=== PATIENT | male | born 1975 | race Two or more races ===

== ENCOUNTER 2020-10-03 19:08 | Emergency (ER) | payer MEDICAID, OTHER ==
[~2020-10-03] VITALS: Ht 170.2 cm; Wt 67.1 kg
[2020-10-03 19:10] VITALS: BP 128/80
--- NOTE | 2020-10-03 19:23 | NUR ---
BIBRA FOR C/O L HIP PAIN AND REDNESS. PT REPORTED HAVING A SX THAT SITE 2 MONTHS AGO AT [facility] . PT AMBULATORY W/ STEADY GAITS. WAS PLACED ON BED 11ER. ON MONITOR. VSS .WILL CONT TO MONITOR ,
[2020-10-03] MEDS ORDERED: SULFAMETH/TRIMETH 800/160 MG 1 UDTAB TABLET PO ONE (20:00)
[2020-10-03] MEDS ORDERED: SULF1TAB48 PO (20:01)
[2020-10-03] MEDS ORDERED: SULFAMETH/TRIMETH 800/160 MG 1 UDTAB TABLET ONE (20:08)
== END 2020-10-03 20:10 | disposition home or self-care (01) ==
LOC: EDBD 19:10 → ER 19:10
DX: L03.116 Cellulitis of left lower limb (principal); Z59.0 Homelessness
CPT/HCPCS: 73502